=== PATIENT | male | born 1940 | race Caucasian/White ===

== ENCOUNTER 2016-07-14 09:04 | Day surgery (SDC) | payer MEDICARE, BC ==
[~2016-07-14 09:04] MED LIST: Cefuroxime 10 MG/ML SYRINGE EYELF SCH; Lidocaine 1% PF 2 ML SDV INJECT SCH; Pilocarpine 4% Ophth Soln 15 ML Bot EYELF SCH
[2016-07-14] MEDS: Polymyxin B/Trimethoprim 10 ML Bottle EYELF SCH ×3 (09:51→11:25)
[2016-07-14] MEDS: Brimonidine 0.2% Ophth Soln 5 ML Bottle EYELF SCH ×3 (09:56→11:25)
--- NOTE | 2016-07-14 10:00 | PCM.PREANE ---
Preanesthetic Assessment - Anesthesia/Transfusion/Family Hx Anesthesia History: Prior Anesthesia Without Reaction Family History of Anesthesia Reaction: No Transfusion History: No Prior Transfusion(s) - Review of Systems General: No Symptoms Pulmonary: No Symptoms Cardiovascular: No Symptoms Gastrointestinal: No symptoms Neurological: No Symptoms Other: Reports: None - Physical Assessment NPO Status Date: 07/13/16 NPO Status Time: 19:00 Pulse: 56 O2 Sat by Pulse Oximetry: 96 Respiratory Rate: 16 Blood Pressure: 141/85 Temperature: 36.4 C Vital Signs: Last Vital Signs Temp 36.4 C 07/14/16 09:45 Pulse 56 L 07/14/16 09:45 Resp 16 07/14/16 09:45 BP 141/85 H 07/14/16 09:45 Pulse Ox 96 07/14/16 09:45 Height: 1.7 m Weight: 81.647 kg ASA Class: 2 Mental Status: Alert & Oriented x3 Airway Class: Mallampati = 1 Dentition: Reports: Bridge (upper) Thyro-Mental Finger Breadths: 3 Mouth Opening Finger Breadths: 3 ROM/Head Extension: Full Lungs: Clear to auscultation, Normal respiratory effort Cardiovascular: Regular Rate, Regular Rhythm, No Murmurs - Allergies Allergies/Adverse Reactions: Allergies Allergy/AdvReac Type Severity Reaction Status Date / Time No Known Allergies Allergy Verified 01/22/15 06:58 - Blood Blood Available: No Product(s) Available: None - Anesthesia Plan Pre-Op Medication Ordered: None - Acknowledgements Anesthesia Type Planned: MAC Pt an Appropriate Candidate for the Planned Anesthesia: Yes Alternatives and Risks of Anesthesia Discussed w Pt/Guardian: Yes Pt/Guardian Understands and Agrees with Anesthesia Plan: Yes PreAnesthesia Questionnaire Cardiovascular History: Reports: Hypertension - HOME MEDS Home Medications: Home Meds Aspirin [[place] Aspirin] 81 mg PO DAILY 07/13/16 [History] Balsalazide Disodium 3 tab PO TID 07/13/16 [History] Losartan/Hydrochlorothiazide [Losartan-HCTZ 50-12.5 MG] 1 tab PO DAILY 07/13/16 [History] Tamsulosin [Flomax] 0.4 mg PO DAILY 07/13/16 [History] Verapamil HCl [Verapamil] 1 tab PO DAILY 07/13/16 [History] - CURRENT (IN HOUSE) MEDS Current Meds: Current Medications Brimonidine Tartrate (Alphagan 0.2% Ophth Soln) 0 ml EYELF ASDIRECTED ZOE Stop: 07/14/16 18:00 Cefuroxime Sodium (Zinacef) 0 mg EYELF ASDIRECTED ZOE Stop: 07/14/16 18:00 Lidocaine HCl (Xylocaine-Mpf 1%) 1 ml INJECT ASDIRECTED ZOE Stop: 07/14/16 18:00 Phenylephrine HCl (Dilshad-Synephrine 2.5% Ophth Soln) 0 ml EYELF ASDIRECTED ZOE Stop: 07/14/16 18:00 Pilocarpine HCl (Pilocar 4% Ophth Soln) 0 ml EYELF ASDIRECTED ZOE Stop: 07/14/16 18:00 Polymyxin/Trimethoprim Sulfate (Polytrim Ophth Soln) 0 ml EYELF ASDIRECTED ZOE Stop: 07/14/16 18:00 Last Admin: 07/14/16 09:51 Dose: 1 drop Tetracaine (Pontocaine 0.5% Ophth Drops) 0 ml EYELF ASDIRECTED ZOE Stop: 07/14/16 18:00 Tropicamide (Mydriacyl 1% Ophth Soln) 0 ml EYELF ASDIRECTED ZOE Stop: 07/14/16 18:00
[2016-07-14] MEDS: Phenylephrine 2.5% Ophth Soln 2 ML Bot EYELF SCH ×5 (10:01→11:09)
[2016-07-14] MEDS: Tetracaine 0.5% 2 ML Bottle EYELF SCH ×2 (10:59→11:15)
--- NOTE | 2016-07-14 11:28 | PCM48HPAN ---
Post Anesthesia Note - EVALUATION WITHIN 48HRS OF ANESTHETIC Vital Signs in Normal Range: Yes Patient Participated in Evaluation: Yes Respiratory Function Stable: Yes Airway Patent: Yes Cardiovascular Function Stable: Yes Hydration Status Stable: Yes Pain Control Satisfactory: Yes Nausea and Vomiting Control Satisfactory: Yes Mental Status Recovered: Yes
[2016-07-14 11:37] VITALS: BP 138/88
== END 2016-07-14 11:36 | disposition home or self-care (01) ==
LOC: JD.SDS 09:04
PROVIDERS: ATTEND Ophthalmology
DX: H25.812 Combined forms of age-related cataract, left eye (principal); H35.3131 Nonexudative age-related macular degeneration, bilateral, early dry stage; H35.373 Puckering of macula, bilateral; H43.811 Vitreous degeneration, right eye; H43.393 Other vitreous opacities, bilateral; I10 Essential (primary) hypertension; Z98.41 Cataract extraction status, right eye; Z96.1 Presence of intraocular lens; Z98.890 Other specified postprocedural states; Z79.899 Other long term (current) drug therapy
CPT/HCPCS: 66984; A9270; J0697; C1780